=== PATIENT | male | born 2005 | race Caucasian/White ===

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

== ENCOUNTER → 2024-06-25 | Outpatient (CLI) | payer OTHER, SELFPAY ==
--- NOTE | 2024-06-25 16:45 | US_ITS ---
EXAM: US SCROTUM CLINICAL INDICATION: prior L epidydimal cyst, no R testicular pain and normal epididym TECHNIQUE: Realtime ultrasound of the testicles was performed with grayscale and Color Doppler analysis. COMPARISON: No relevant prior studies available. FINDINGS: RIGHT TESTICLE: Unremarkable. Normal in size and echotexture. No focal lesion. Normal blood flow is present. The right testicle measures 3.9 x 2.9 x 1.7 cm. LEFT TESTICLE: Unremarkable. Normal in size and echotexture. No focal lesion. Normal blood flow is present. The left testicle measures 4.5 x 2.6 x 1.7 cm. EPIDIDYMIDES: Unremarkable. Normal in size and echotexture, without focal lesion. Normal color Doppler flow pattern in the epididymis. SCROTUM: Small right hydrocele. Small left hydrocele. No varicocele. US/Testicular with Arterial Flow IMPRESSION: No acute findings in the scrotum. Electronically Signed: Darshan Cintron MD at 23:29 EST ,
== END | disposition home or self-care (01) ==
LOC: US 16:45
PROVIDERS: PCP Family Medicine; Referring Provider Family Medicine; Visit Provider Family Medicine
DX: N50.811 Right testicular pain (principal)
CPT/HCPCS: 76870; 93976